=== PATIENT | male | born 1955 | race Caucasian/White ===

== ENCOUNTER 2023-08-10 18:00 | Inpatient (IN) | payer OTHER ==
--- NOTE | 2023-08-10 19:39 | RAD REPORT ---
EXAM DESCRIPTION: CT - Head C Spine Mpr Wo Con - 08/10/2023 7:23 pm CLINICAL HISTORY: Head and neck injury status post fall. Head and neck pain COMPARISON: 2007 MRI cervical spine TECHNIQUE: Computed axial tomography of the head and cervical spine was obtained. Sagittal and coronal reconstruction was performed. All CT scans are performed using dose optimization technique as appropriate and may include automated exposure control or mA/KV adjustment according to patient size. FINDINGS: An intracranial bleed is not seen. The ventricles are normal in caliber. No significant hypodensity within the brain. An extra-axial fluid collection is not noted. Fluid within the visualized sinuses and mastoids is not seen A cervical fracture is not visualized. No dislocation is noted. Spondylosis cervical spine IMPRESSION: No acute intracranial abnormality is seen. A cervical fracture is not visualized. If the patient continues to have symptoms to suggest intracranial /spinal cord pathology then MRI wou ld be recommended
--- NOTE | 2023-08-10 19:39 | RAD REPORT ---
EXAM DESCRIPTION: [place] Single View08/10/2023 7:29 pm CLINICAL HISTORY: Chest pain COMPARISON: 2012 FINDINGS: The lungs appear clear of acute infiltrate. The heart is normal size IMPRESSION: No acute abnormalities displayed
[2023-08-10] MEDS ORDERED: NA CHLORIDE 0.9% 1,000 ML ONE ×2 (19:50→21:09)
[2023-08-10 19:55] LABS: Absolute Eosinophils 0.3 K/uL (0-0.5); Absolute Lymphocytes (CBC) 0.2 K/uL (0.7-4.9); Absolute Monocytes 0.2 K/uL (0.1-1.3); Absolute Neutrophil 3.8 K/uL (1.8-8.0); Basophils % 0.1 % (0-1.3); Eosinophils % 6.5 % (0-4.4); Hematocrit 32.3 % (39.6-49.0); Hemoglobin 11.2 g/dL (13.6-17.9); Lymphocytes % 4.5 % (15.3-44.8); MCH 30.7 pg (27.0-35.0); MCHC 34.7 g/dL (32.0-36.0); MCV 88.3 fL (80-100); MPV 7.4 fL (7.6-11.3); Monocytes % 5.1 % (3.3-12.3); Neutrophils % 83.8 % (41.7-73.7); Nucleated Red Blood Cells % 0.1 % (0-0); Platelets 197 thou/uL (152-406); RBC Red Blood Cell Count 3.66 M/uL (4.33-5.43); Red Cell Distribution Width 13.5 % (12.1-15.2)
[2023-08-10 20:12] LABS: Anion Gap 13.7 mEq/L (5.0-15.0); Bilirubin Total 0.8 mg/dL (0.2-1.0); Potassium 3.7 mEq/L (3.5-5.1)
--- NOTE | 2023-08-10 20:19 | EDPHYS ---
Physician Documentation [facility] Name: Qasim Piedra Age: 68 yrs Sex: Male : 1955 Arrival Date: 08/10/2023 Time: 18:00 Bed 15 Private MD: ED Physician Janet King HPI: 08/09 19:21 This 68 yrs old Male presents to ER via Ambulatory with complaints of General Weakness, ms3 Fever, Sent by . 19:21 68-year-old male with past medical history of hypertension presents to the emergency ms3 department for fatigue, weakness, decreased appetite that began on Sunday. Patient states yesterday after mowing on his riding lawnmower he fell and was unable to get up. He does endorse chills, fever, urinary frequency. Patient denies pain at this time. Historical: - Allergies: 18:34 tramadol; ko1 - PMHx: 18:34 Hypertensive disorder; ko1 - Immunization history:: Adult Immunizations unknown. - Infectious Disease History:: Denies. - Social history:: Smoking status: Patient denies any tobacco usage or history of. ROS: 19:21 Cardiovascular: Negative for chest pain, and palpitations. Respiratory: Negative for ms3 shortness of breath, cough, wheezing, and pleuritic chest pain, Abdomen/GI: Negative for abdominal pain, nausea, vomiting, diarrhea, and constipation, MS/Extremity: Negative for injury and deformity, Skin: Negative for injury, rash, and discoloration, 19:21 Constitutional: Positive for chills, fatigue, poor PO intake, Exam: 19:21 Constitutional: This is a well developed, well nourished patient who is awake, alert, ms3 and in no acute distress. Head/Face: Normocephalic, atraumatic. Chest/axilla: Normal chest wall appearance and motion. Nontender with no deformity. Cardiovascular: Regular rate and rhythm with a normal S1 and S2. No gallops, murmurs, or rubs. Normal PMI, no JVD. No pulse deficits. Respiratory: Lungs have equal breath sounds bilaterally, clear to auscultation and percussion. No rales, rhonchi or wheezes noted. No increased work of breathing, no retractions or nasal flaring. Abdomen/GI: Soft, non-tender, with normal bowel sounds. No distension or tympany. No guarding or rebound. No evidence of tenderness throughout. Skin: Warm, dry with normal turgor. Normal color with no rashes, no lesions, and no evidence of cellulitis. MS/ Extremity: Pulses equal, no cyanosis. Neurovascular intact. Full, normal range of motion. 19:23 ECG was reviewed by the Attending Physician. ms3 Vital Signs: 18:35 BP 155 / 79; Pulse 79; Resp 16; Temp 98; Pulse Ox 98% ; Weight 86.18 kg; Height 5 ft. ko1 11 in. ; Pain 0/10; 19:30 BP 144 / 64; Pulse 72; Resp 16; Pulse Ox 100% ; Pain 0/10; pf1 20:30 BP 166 / 72; Pulse 79; Resp 16; Pulse Ox 100% on R/A; Pain 0/10; pf1 21:30 BP 156 / 63; Pulse 76; Resp 16; Pulse Ox 100% ; Pain 0/10; pf1 22:30 BP 146 / 65; Pulse 75; Resp 16; Temp 97.9; Pulse Ox 100% on R/A; Pain 0/10; pf1 18:35 Body Mass Index 26.50 (86.18 kg, 180.34 cm) ko1 18:35 Pain Scale: Adult ko1 19:30 Pain Scale: Adult pf1 20:30 Pain Scale: Adult pf1 21:30 Pain Scale: Adult pf1 22:30 Pain Scale: Adult pf1 MDM: 18:28 Patient medically screened. ms3 19:21 Differential diagnosis: viral Infection, URI, UTI. ms3 19:59 Transition of care: After a detail discussion of the patient's case, care is ms3 transferred to Janet King MD. 20:16 Data reviewed: vital signs, nurses notes, old medical records, lab test result(s). ED sp3 course: Patient signed out to me by Dr. Montes for chief complaint generalized weakness. Sodium found to be 117. Will start slow normal saline infusion and admit to primary care physician. Other than generalized weakness, there are no other neurological findings or symptoms. CT scan reviewed of the head which demonstrates no significant abnormality.. 08/09 18:34 Order name: CBC with Diff; Complete Time: 20:13 ms3 08/09 18:34 Order name: CMP; Complete Time: 20:18 ms3 08/09 18:34 Order name: Urinalysis w/ reflexes ms3 08/09 18:48 Order name: Troponin High Sensitivity ms3 08/09 20:21 Order name: Urine Sodium Random sp3 08/09 20:21 Order name: Urine Creatinine sp3 08/09 18:40 Order name: CT Head C Spine; Complete Time: 19:48 ms3 08/09 19:23 Order name: CXR XRAY; Complete Time: 19:48 ms3 08/09 18:48 Order name: EKG; Complete Time: 18:48 ms3 08/09 18:34 Order name: IV Saline Lock; Complete Time: 19:47 ms3 08/09 18:34 Order name: Labs collected and sent; Complete Time: 19:47 ms3 08/09 18:48 Order name: EKG - Nurse/Tech; Complete Time: 19:15 ms3 EC:23 Rate is 74 beats/min. Rhythm is regular. QRS [place] is Normal. [place] interval is normal. QRS ms3 interval is normal. Clinical impression: Normal ECG. Interpreted by me. Reviewed by me. Administered Medications: 19:52 Drug: NS 0.9% IV 1000 ml IV at 1 bolus Per protocol; 1000 mL bolus Route: IV; Rate: 1 pf1 bolus; Site: right antecubital; 20:30 Follow up: Response: No adverse reaction; Marked relief of symptoms; IV Status: pf1 Completed infusion; IV Intake: 1000ml 21:15 Drug: NS 0.9% IV 1000 ml IV at 75 ml/hr continuous Route: IV; Rate: 75 ml/hr; Site: pf1 right antecubital; 21:48 Follow up: Response: No adverse reaction; IV Status: Infusion continued upon admission pf1 Disposition Summary: 08/10/23 20:18 Hospitalization Ordered Notes: Hospitalization Status: Inpatient Admission sp3 Provider: Zoltan Armendariz sp3 Location: Telemetry/[facility] (Inpatient) sp3 Condition: Stable sp3 Problem: an acute exacerbation sp3 Symptoms: have worsened sp3 Bed/Room Type: Standard sp3 Room Assignment: 402(08/10/23 22:22) cg Diagnosis - Generalized weakness, hyponatremia, dehydration sp3 Forms: - Medication Reconciliation Form sp3 - SBAR form sp3 - Leadership Thank You Letter sp3 Signatures: Dispatcher [employer] EDMS Charley Castillo, RN RN cg Alexi Montes, DO DO ms3 Janet King MD MD sp3 Joselyn Ayala RN RN ko1 Cynthia Ma RN RN pf1 Corrections: (The following items were deleted from the chart) 18:34 18:34 CBC+H.LAB.BRZ ordered. EDMS EDMS 18:34 18:34 COMPREHENSIVE METABOLIC PANEL+C.LAB.BRZ ordered. EDMS EDMS 18:34 18:34 Urinalysis+U.LAB.BRZ ordered. EDMS EDMS 22:22 20:18 sp3 cg
--- NOTE | 2023-08-10 20:19 | ER ---
Nurse's Notes [facility] Name: Qasim Piedra Age: 68 yrs Sex: Male : 1955 Arrival Date: 08/10/2023 Time: 18:00 Bed 15 Private MD: Diagnosis: Generalized weakness, hyponatremia, dehydration Presentation: 08/09 18:32 Chief complaint: Patient states: generalized weakness, fell yesterday. Coronavirus ko1 screen: At this time, the client does not indicate any symptoms associated with coronavirus-19. Ebola Screen: No symptoms or risks identified at this time. Initial Sepsis Screen: Does the patient meet any 2 criteria? No. Patient's initial sepsis screen is negative. Does the patient have a suspected source of infection? No. Patient's initial sepsis screen is negative. Risk Assessment: Do you want to hurt yourself or someone else? Patient reports no desire to harm self or others. Onset of symptoms was August 10, 2023. 18:32 Method Of Arrival: Ambulatory ko1 18:32 Acuity: YI 3 ko1 Triage Assessment: 18:34 General: Appears in no apparent distress. Behavior is calm, cooperative, appropriate ko1 for age. Pain: Denies pain. Historical: - Allergies: 18:34 tramadol; ko1 - PMHx: 18:34 Hypertensive disorder; ko1 - Immunization history:: Adult Immunizations unknown. - Infectious Disease History:: Denies. - Social history:: Smoking status: Patient denies any tobacco usage or history of. Screenin:48 [facility] ED Fall Risk Assessment (Adult) History of falling in the last 3 months, pf1 including since admission Yes- single mechanical fall (1 pt) Confusion or Disorientation No (0 pts) Intoxicated or Sedated No (0 pts) Impaired Gait Yes (1 pt) Mobility Assist Device Used No (0 pt) Altered Elimination No (0 pt) Score/Fall Risk Level 0 - 2 = Low Risk Oriented to surroundings, Maintained a safe environment, Educated pt \T\ family on fall prevention, incl call for assistance when getting out of bed, Assessed \T\ reinforced patient's understanding of fall precautions, Provided non-skid footwear, Hourly rounding (assess needs \T\ fall precautionary measures) done, Used ambulatory aids as needed (educated on \T\ assisted with), Used gait belt as appropriate. Abuse screen: Denies threats or abuse. Nutritional screening: No deficits noted. Tuberculosis screening: No symptoms or risk factors identified. Assessment: 19:00 General: Appears in no apparent distress. comfortable, well groomed, well developed, pf1 Behavior is calm, cooperative, appropriate for age, quiet. 19:00 Pain: Denies pain. Neuro: Level of Consciousness is awake, alert, obeys commands, pf1 Oriented to person, place, time, situation, Reports weakness. Cardiovascular: Capillary refill < 3 seconds Patient's skin is warm and dry. Respiratory: No deficits noted. Airway is patent Respiratory effort is even, unlabored, Respiratory pattern is regular, symmetrical, Breath sounds are clear bilaterally. GI: Abdomen is flat, non-distended, Reports diarrhea. : No deficits noted. No signs and/or symptoms were reported regarding the genitourinary system. EENT: Reports sinus infection that was treated with antibiotics that caused a rash, then discontinued the antibiotics before completion. Derm: No deficits noted. No signs and/or symptoms reported regarding the dermatologic system. Musculoskeletal: No deficits noted. No signs and/or symptoms reported regarding the musculoskeletal system. 20:08 Reassessment: Patient appears in no apparent distress at this time. Patient and/or pf1 family updated on plan of care and expected duration. Pain level reassessed. Patient is alert, oriented x 3, equal unlabored respirations, skin warm/dry/pink. 21:00 Reassessment: Patient appears in no apparent distress at this time. Patient and/or pf1 family updated on plan of care and expected duration. Pain level reassessed. Patient is alert, oriented x 3, equal unlabored respirations, skin warm/dry/pink. Patient states symptoms have improved. 22:00 Reassessment: Patient appears in no apparent distress at this time. Patient and/or pf1 family updated on plan of care and expected duration. Pain level reassessed. Patient is alert, oriented x 3, equal unlabored respirations, skin warm/dry/pink. Patient states symptoms have improved. 23:00 Reassessment: Patient appears in no apparent distress at this time. Patient and/or pf1 family updated on plan of care and expected duration. Pain level reassessed. Patient is alert, oriented x 3, equal unlabored respirations, skin warm/dry/pink. Patient states symptoms have improved. Vital Signs: 18:35 BP 155 / 79; Pulse 79; Resp 16; Temp 98; Pulse Ox 98% ; Weight 86.18 kg; Height 5 ft. ko1 11 in. ; Pain 0/10; 19:30 BP 144 / 64; Pulse 72; Resp 16; Pulse Ox 100% ; Pain 0/10; pf1 20:30 BP 166 / 72; Pulse 79; Resp 16; Pulse Ox 100% on R/A; Pain 0/10; pf1 21:30 BP 156 / 63; Pulse 76; Resp 16; Pulse Ox 100% ; Pain 0/10; pf1 22:30 BP 146 / 65; Pulse 75; Resp 16; Temp 97.9; Pulse Ox 100% on R/A; Pain 0/10; pf1 18:35 Body Mass Index 26.50 (86.18 kg, 180.34 cm) ko1 18:35 Pain Scale: Adult ko1 19:30 Pain Scale: Adult pf1 20:30 Pain Scale: Adult pf1 21:30 Pain Scale: Adult pf1 22:30 Pain Scale: Adult pf1 ED Course: 18:03 Patient arrived in ED. im 18:06 Alexi Montes DO is Attending Physician. ms3 18:34 Triage completed. ko1 18:34 Arm band placed on right wrist. Patient placed in waiting room, Patient notified of ko1 wait time. 19:00 Patient has correct armband on for positive identification. Placed in gown. Bed in low pf1 position. Call light in reach. Side rails up X2. 19:16 EKG done, by ED staff. vk 19:25 CT Head C Spine In Process Unspecified. EDMS 19:31 CXR XRAY In Process Unspecified. EDMS 19:45 No provider procedures requiring assistance completed. Inserted saline lock: 22 gauge pf1 in right antecubital area, using aseptic technique. Blood collected. 19:45 Initial lab(s) drawn, by me, sent to lab. pf1 19:47 CBC with Diff Sent. pf1 19:47 CMP Sent. pf1 19:47 Urinalysis w/ reflexes Sent. pf1 19:59 Attending Physician role handed off by Alexi Montes DO ms3 19:59 Janet King MD is Attending Physician. ms3 20:15 Troponin High Sensitivity Sent. cm10 20:17 Marcello, Zoltan, MD is Hospitalizing Provider. sp3 22:36 Provided Education on: need for admit. pf1 22:36 Patient admitted, IV remains in place. pf1 Administered Medications: 19:52 Drug: NS 0.9% IV 1000 ml IV at 1 bolus Per protocol; 1000 mL bolus Route: IV; Rate: 1 pf1 bolus; Site: right antecubital; 20:30 Follow up: Response: No adverse reaction; Marked relief of symptoms; IV Status: pf1 Completed infusion; IV Intake: 1000ml 21:15 Drug: NS 0.9% IV 1000 ml IV at 75 ml/hr continuous Route: IV; Rate: 75 ml/hr; Site: pf1 right antecubital; 21:48 Follow up: Response: No adverse reaction; IV Status: Infusion continued upon admission pf1 Medication: 22:36 VIS not applicable for this client. pf1 Intake: 20:30 IV: 1000ml; Total: 1000ml. pf1 Outcome: 20:18 Decision to Hospitalize by Provider. sp3 22:35 Admitted to Med/surg via stretcher, room 402, with chart, Report called to faxed pf1 22:35 Condition: stable 22:35 Instructed on the need for admit, Demonstrated understanding of instructions, 23:28 Patient left the ED. pf1 Signatures: Dispatcher [employer] EDMS Alexi Montes DO DO ms3 Janet King MD MD sp3 Joselyn Ayala RN RN ko1 Cynthia Ma RN RN pf1 Luna Hernandez Clarissa RN RN cm10 Linnette Barcenas Corrections: (The following items were deleted from the chart) 22:35 21:30 BP 146 / 65; Pulse 75bpm; Resp 16bpm; Pulse Ox 100% RA; Pain 0/10, Adult; pf1 pf1
[2023-08-10 20:49] LABS: Specific Gravity 1.011 (1.005-1.030); Urine Bilirubin NEGATIVE (Negative); Urine Blood Negative (Negative); Urine Clarity Clear (Clear); Urine Color Light-Yellow (Yellow); Urine Glucose NEGATIVE (Negative); Urine Ketones 1+ (Negative); Urine Microscopic Reflex YN NO UMIC; Urine Nitrite NEGATIVE (Negative); Urine Protein NEGATIVE (Negative); Urine Urobilinogen Normal (Normal); Urine pH 6.5 (5.0-7.0)
[2023-08-10] MEDS: NA CHLORIDE 0.9% 1,000 ML IV SCH (23:30)
[2023-08-10 23:43] VITALS: BMI 27.3
[2023-08-11 00:05] VITALS: O2SAT 100
[2023-08-11 06:30] LABS: Absolute Eosinophils 0.3 K/uL (0-0.5); Absolute Lymphocytes (CBC) 0.3 K/uL (0.7-4.9); Absolute Monocytes 0.2 K/uL (0.1-1.3); Absolute Neutrophil 2.5 K/uL (1.8-8.0); Basophils % 0.2 % (0-1.3); Hematocrit 29.7 % (39.6-49.0); Hemoglobin 10.5 g/dL (13.6-17.9); Lymphocytes % 8.7 % (15.3-44.8); MCH 31.3 pg (27.0-35.0); MCHC 35.5 g/dL (32.0-36.0); MCV 88.3 fL (80-100); MPV 8.3 fL (7.6-11.3); Monocytes % 6.3 % (3.3-12.3); Neutrophils % 76.8 % (41.7-73.7); Platelets 188 thou/uL (152-406); RBC Red Blood Cell Count 3.37 M/uL (4.33-5.43); Red Cell Distribution Width 13.7 % (12.1-15.2)
[2023-08-11 06:39] LABS: Anion Gap 9.4 mEq/L (5.0-15.0); Potassium 3.4 mEq/L (3.5-5.1)
[2023-08-11] MEDS: ENOXAPARIN 40 MG/0.4 ML SQ SCH (07:59)
--- NOTE | 2023-08-11 09:14 | RAD REPORT ---
EXAM DESCRIPTION: CT - Chest Abdomen W Con - 08/11/2023 8:47 am CLINICAL HISTORY: Chest and abdomen pain. hyponatremia, high alk phos COMPARISON: No comparisons TECHNIQUE: CT scan of the chest and abdomen was obtained with IV contrast. Approximately 100 mL nonionic IV contrast was administered to the patient. All CT scans are performed using dose optimization technique as appropriate and may include automated exposure control or mA/KV adjustment according to patient size. FINDINGS: Mild dependent atelectasis. Mild interlobular septal thickening.Trace pleural effusions bi laterally.No intrathoracic adenopathy.Multi-vessel coronary disease. Multi-vessel coronary artery dis ease. Aortic valve calcifications. Small pericardial effusion. Periportal edema. No focal liver masses. Prominent portacaval lymph nodes which could be secondary to underlying liver disease. The pancreas and spleen are unremarkable. No hydronephrosis. No adrenal le sions. Reactive sized retroperitoneal lymph nodes. No bowel obstruction identified. No worrisome osseous finding. IMPRESSION: No acute findings within the chest or abdomen. Volume overload with small pleural effusi ons, mild pulmonary edema, and portal/periportal edema in the abdomen.
[2023-08-11] MEDS: POTASSIUM CL SA 10 MEQ TAB PO SCH (09:55)
[2023-08-11 12:57] LABS: Anion Gap 8.6 mEq/L (5.0-15.0); Potassium 3.6 mEq/L (3.5-5.1)
[2023-08-11 16:19] VITALS: BP 155/69; TEMP 97.6
--- NOTE | 2023-08-11 16:32 | P.SSS ---
Patient History Date of Service: 08/11/23 Reason for admission: weakness History of Present Illness: Qasim is a patient with htn and mild edema. called that after mowing lawn he almost fell. I suspected dehydration and hyponatremia as he had low sodium at 130 before. He was at 117. With iv saline he is up to 126 now. He is stable to go home. CT shows possible portal hyperension like features. I will fu on this. He may have non alcoholic cirrhosis Allergies tramadol Allergy (Verified 08/10/23 22:54) Hives/Rash Home medications list reviewed: Yes Home Medications: Olmesartan Medoxomil 40 mg PO DAILY #90 08/11/23 - Past Medical/Surgical History Has patient received pneumonia vaccine in the past: Yes Diabetic: No -: vericose veins -: HTN -: high cholesterol -: procedure for vericose veins - Social History Smoking Status: Never smoker Alcohol use: Yes CD- Drugs: No Caffeine use: Yes Place of Residence: Home Review of Systems 10-point ROS is otherwise unremarkable Physical Examination - Vital Signs Temperature: 97.6 F Blood Pressure: 155/69 Pulse: 66 Respirations: 16 Pulse Ox (%): 97 - Physical Exam General: Mild distress HEENT: Atraumatic, PERRLA, Mucous membr. moist/pink, EOMI, Sclerae nonicteric Neck: Supple, 2+ carotid pulse no bruit, No LAD, Without JVD or thyroid abnormality Respiratory: Clear to auscultation bilaterally, Normal air movement Cardiovascular: Regular rate/rhythm, Normal S1 S2, Edema (mild chronic) Gastrointestinal: Normal bowel sounds, No tenderness Musculoskeletal: No tenderness Integumentary: No rashes Neurological: Normal gait, Normal speech, Normal strength at 5/5 x4 extr, Normal tone, Normal affect Lymphatics: No axilla or inguinal lymphadenopathy - Studies Laboratory Data (last 24 hrs) 08/10/23 08/10/23 19:45 19:45 WBC 4.50 Hgb 11.2 L Hct 32.3 L Plt Count 197 Sodium 117 L* Potassium 3.7 BUN 11 Creatinine 0.70 Glucose 107 H Total Bilirubin 0.8 AST 58 H ALT 165 H Alkaline Phosphatase 171 H - Diagnosis (Problem(s)) (1) Hyponatremia Current Visit: Yes Status: Acute Plan: reversed gently to 126 HE feels well. Will continue fu (2) HTN (hypertension) Current Visit: Yes Status: Chronic Plan: change from hct to non hct olmesartan as it may have caused hyponatremia. (3) Abnormal liver enzymes Current Visit: Yes Status: Chronic Plan: worse fu check ferritin iron saturation on op basis (4) Hypoalbuminemia Current Visit: Yes Status: Chronic Plan: worse may be related to cirrhosis. - Disposition Disposition: ROUTINE DISCHARGE Condition: FAIR
--- NOTE | 2023-08-14 14:26 | EKG ---
Test Date: 2023-08-10 Test Time: 19:13:03 Mri Special Procedures Technologist: NATALI MEASUREMENT RESULTS: Intervals: Rate: 74 WI: 192 QRSD: 92 QT: 380 QTc: 421 [place]: P: 73 WI: 192 QRS: 77 T: 59 INTERPRETIVE STATEMENTS: Normal sinus rhythm Normal ECG No previous ECG available for comparison Electronically Signed On 08-14-23 14:15:22 CDT by Abhay Mcmahon
== END 2023-08-11 17:45 | disposition home or self-care (01) | DRG 641 ==
LOC: ER 18:00 → ERHOLD 21:29 → 4TH 23:14
PROVIDERS: ADMIT Internal Medicine; ATTEND Internal Medicine
DX: E87.1 Hypo-osmolality and hyponatremia (principal); K76.6 Portal hypertension; E86.0 Dehydration; I10 Essential (primary) hypertension; E78.00 Pure hypercholesterolemia, unspecified; K70.30 Alcoholic cirrhosis of liver without ascites; E88.09 Other disorders of plasma-protein metabolism, not elsewhere classified; R79.89 Other specified abnormal findings of blood chemistry; Z88.5 Allergy status to narcotic agent
CPT/HCPCS: 36415; 70450; 71045; 71260; 72125; 74160; 80048; 80053; 81003; 82570; 83930; 83935; 84300; 84484; 85025; 93005; 96360; 99285; J1650; J7030; Q9967